=== PATIENT | female | born 1935 | race Caucasian/White ===

== ENCOUNTER → 2020-10-13 09:11 | Outpatient (BNVA) | payer MEDICARE, OTHER, SELFPAY | PROVIDERS: PCP Internal Medicine; Visit Provider Internal Medicine | DX: I25.10 Atherosclerotic heart disease of native coronary artery without angina pectoris (principal); I12.9 Hypertensive chronic kidney disease with stage 1 through stage 4 chronic kidney disease, or unspecified chronic kidney disease; N18.32 Chronic kidney disease, stage 3b; E78.5 Hyperlipidemia, unspecified | CPT/HCPCS: 93005; 99212 ==

== ENCOUNTER → 2021-03-22 10:19 | Outpatient (REF) | payer MEDICARE, OTHER, SELFPAY ==
--- NOTE | 2021-03-22 10:25 | CA_ITS ---
Transthoracic Echocardiogram Patient (Last, First, Middle): Daya Han M Gender: Female Date of : 1935 Age: 85 Procedure Date: 03/22/2021 Procedure Type: Transthoracic Echocardiogram Location: OP Height: 167.64 cm Weight: 82.56 kg BSA: 1.92 m2 Heart Rate: bpm BP: 122 / 66 mmHg Center Manager: Referring MD: Zuhair Felipe MD Symptoms: I25.10 - Atherosclerotic heart disease of [place] coronary artery without angina pectoris Study Quality: Fair ECG Rhythm: Sinus Conclusions: - The left ventricular systolic function is normal. The visually estimated ejection fraction is between 55-60%. - The basal inferior and basal inferoseptal segments are akinetic. - There is mild calcification of the aortic valve. - There is mild mitral valve regurgitation. - There is mild tricuspid valve regurgitation. - Mild pulmonary hypertension is present. Findings Left Ventricle Normal left ventricular cavity size. The left ventricular systolic function is normal. The visually estimated ejection fraction is between 55-60%. There is evidence of regional wall motion abnormalities. E/E prime ratio is >15, consistent with elevated filling pressures. Evidence suggests grade I (mild) diastolic dysfunction. There is mild septal and mild basal asymmetric hypertrophy. Wall Motion Rest Echo Findings The basal inferior and basal inferoseptal segments are akinetic. Right Ventricle Mildly increased right ventricular cavity size. There is normal right ventricular systolic function. Atria The left atrium is mildly dilated. The right atrium is normal in size. Aortic Valve There is a normal trileaflet aortic valve. There is mild calcification of the aortic valve. There is no aortic valve stenosis. There is mild aortic valve regurgitation. Mitral Valve The mitral valve appears normal. There is mild mitral valve regurgitation. There is no mitral valve stenosis. Pulmonic Valve The pulmonic valve was not well visualized. Tricuspid Valve There is mild tricuspid valve regurgitation. The right ventricular systolic pressure is 38 mmHg. Mild pulmonary hypertension is present. Great Vessels Top normal ascending aortic size at 3.9 cm. Venous The inferior vena cava is normal in size and collapses greater than 50% with inspiration. Pericardium/Pleural There is no evidence of pericardial effusion. Prior Study Comparison No significant change compared to prior study dated: 06/25/2019. Measurements 2D Linear Measurements IVSd: 1.37 0.6-0.9/0.6-1.0 cm LVIDd: 3.93 3.9-5.3/4.2-5.9 cm LVIDd Index: 2.05 2.4-3.2/2.2-3.1 cm/m2 LVIDs: 2.48 2.0-3.6 cm LVPWd: 1.25 0.7-1.1 cm Ao Root: 3.50 2.1-3.5 cm LA Diam: 3.60 2.7-3.8/3.0-4.0 cm LAIDs Index: 1.88 1.5-2.3 cm/m2 LV Mass: 229.13 67-162/88-224 g LV Mass Index: 119.34 43-95/49-115 g/m2 LVOT Diam: 2.00 3.0+(-)1.3 cm Mitral Valve MV Pk E: 0.86 MV PK A: 1.34 MV Decel Time: 238.00 E/A: 0.60 E'Lateral: 5.87 E'Medial: 5.11 E/E' Med: 16.80 E/E' Lat: 14.70 PHT: 70.00 MVA PHT: 3.14 Decel [place]: 3.61 Aortic Valve AoV Pk Johnny: 1.50 AoV Mn Johnny: 0.96 AoV VTI: 0.40 AoV Pk Grad: 9.00 Aov Mn Grad: 4.00 CARMELA Cont.VTI: 2.19 AI Pk Johnny: 4.38 AI [place]: 3.13 LVOT LVOT Pk Johnny: 1.06 LVOT Mn Johnny: 0.71 LVOT VTI: 0.28 LVOT Pk Grad: 4.00 LVOT Mn Grad: 3.00 LVOT Diam: 2.00 LVOT Area: 3.14 Diastolic Function MV Pk E: 0.86 MV Pk A: 1.34 E/A: 0.60 E'Medial: 5.11 E/E' Med: 16.80 E' Laterial: 5.87 E/E' Lat: 14.70 Right Ventricle TAPSE (mm): 30.00 Tricuspid Valve TR Pk Johnny: 2.58 TR Pk Grad: 27.00 RA Press: 3.00 RVSP: 38.00 Great Vessels Aorta Ao Root-2D: 3.50 2.0-3.7 cm Ao Asc: 3.70 2.1-3.4 cm Pulmonary Valve PV Pk Johnny: 0.80 Peak PV Grad: 3.00 Updated in Other Vendor System with Status of Final Zuhair Felipe MD electronically signed on 03/22/2021 2:09:49 PM with status of Final
== END ==
LOC: HO.CARD 10:19
PROVIDERS: Visit Provider Internal Medicine
DX: I25.10 Atherosclerotic heart disease of native coronary artery without angina pectoris (principal)
CPT/HCPCS: 93306

== ENCOUNTER → 2021-04-13 09:13 | Outpatient (BNVA) | payer MEDICARE, OTHER, SELFPAY | PROVIDERS: PCP Internal Medicine; Referring Provider Internal Medicine; Visit Provider Internal Medicine | DX: I25.10 Atherosclerotic heart disease of native coronary artery without angina pectoris (principal); I12.9 Hypertensive chronic kidney disease with stage 1 through stage 4 chronic kidney disease, or unspecified chronic kidney disease; E78.5 Hyperlipidemia, unspecified; N18.32 Chronic kidney disease, stage 3b; I21.4 Non-ST elevation (NSTEMI) myocardial infarction; Z88.8 Allergy status to other drugs, medicaments and biological substances; Z79.899 Other long term (current) drug therapy | CPT/HCPCS: 99212 ==

== ENCOUNTER → 2021-05-02 08:48 | Outpatient (REF) | payer MEDICARE, OTHER, SELFPAY ==
--- NOTE | ~2021-05-02 | NM_ITS ---
Myocardial perfusion study Indication: Atherosclerotic cardiac for myocardial ischemia Technique: The patient was brought in for a Lexiscan perfusion study on 05/02/2021. Patient performed low-level exercise and was injected 0.4 mg of Lexiscan intravenously. Within a minute of injection, 30 mCi of sestamibi was given intravenously. Images were obtained using the SPECT gamma camera interlaced with the gating device. Images were obtained in supine position. Resting perfusion study was performed on 05/03/2021. Patient was administered 30 mCi of sestamibi intravenously at rest. Images were then obtained in supine position. Gy-cm. Images obtained with and without CT attenuation. Total DLP 103 Images were processed with the software and compared side to side in short axis, horizontal long axis and vertical long axis views. Findings: The stress perfusion study showed nonattenuated images show mildly reduced uptake in the distal lateral, apex and distal anterior wall of the LV myocardium. Remainder of the LV myocardium is normally perfused. Attenuation corrected images show mildly reduced uptake in the inferior, moderately reduced uptake in the apex and mildly to moderately reduced uptake in the inferoapical wall of the LV myocardium.. The gated study shows normal LV systolic function with calculated LVEF of 70%. LV cavity is normal in size. The gated study shows normal systolic wall thickening and contraction of segments. Resting study shows nontender images show improved uptake in the distal lateral and apex of the LV myocardium. Attenuation corrected images show improved uptake in the inferoapical, apex of the LV myocardium.. Gating at rest reveals normal systolic wall motion with ejection fraction at 68%. The findings are consistent with small size mild intensity reversible defect of the apex and the inferoapical wall suggestive of ischemia.. NM/NM cardiolite stress test Impression: 1. Myocardial perfusion imaging study shows apical and inferoapical ischemia of mild intensity 2. Gated LVEF is 70%% 3. Transient ischemic dilatation not present EKG is nondiagnostic for ischemia
--- NOTE | 2021-05-02 08:51 | CA_ITS ---
Acquisition Time: 2021-05-02 09:01:55 Total Exercise Time: 00:02:00 Test Indications: Screening for CAD Medications: ASA HYDRALAZINE METOPROLOL ROSUVASTATIN Protocol: LEXISCAN Max HR: 120 BPM 87% of Pred: 137 BPM Max BP: 148/090 mmHG Max Work Load: 1.0 METS Pharmacological stress test with Lexiscan injection, while sitting and kicking her legs, without anginal symptoms, with isolated PAC, with normotensive response to injection, with EKG changes meeting criteria for ischemia, [address] V3-V6, scooping STs inferiorly. At 5 min recovery she was given Aminophylline 75mg IVP to reverse Lexiscan with gradual EKG improvement back to baseline. Nuclear images pending Test reviewed Dr Garcia Referred By: Zuhair Felipe Overread By: ANTWON MÁRQUEZ
== END ==
LOC: HO.CARD 08:48
PROVIDERS: PCP Internal Medicine; Visit Provider Internal Medicine
DX: I25.10 Atherosclerotic heart disease of native coronary artery without angina pectoris (principal)
CPT/HCPCS: 78452; 93017; A9500; J0280; J2785

== ENCOUNTER → 2021-05-24 09:14 | Outpatient (BNVA) | payer MEDICARE, OTHER, SELFPAY | PROVIDERS: PCP Internal Medicine; Referring Provider Internal Medicine; Visit Provider Internal Medicine | DX: I25.10 Atherosclerotic heart disease of native coronary artery without angina pectoris (principal); I12.9 Hypertensive chronic kidney disease with stage 1 through stage 4 chronic kidney disease, or unspecified chronic kidney disease; N18.32 Chronic kidney disease, stage 3b; E78.5 Hyperlipidemia, unspecified | CPT/HCPCS: 99212 ==

== ENCOUNTER 2021-06-01 09:09 | Outpatient (REF) | payer MEDICARE, OTHER, SELFPAY ==
[2021-06-01 10:30] LABS: Alanine Aminotransferase 17 U/L (0-31); Albumin Level 4.1 g/dL (3.5-5.0); Alkaline Phosphatase 53 U/L (39-117); Anion Gap 13 (12-20); Aspartate Amino Transferase 20 U/L (5-31); Bilirubin Direct 0.3 mg/dL (0.0-0.5); Bilirubin Total 0.6 mg/dL (0.0-1.0); Blood Urea Nitrogen 26 mg/dL (9-16); Calcium 9.4 mg/dL (8.4-10.2); Carbon Dioxide 23 mmol/L (22-29); Chloride 107 mmol/L (96-108); Cholesterol 167 mg/dL; Estimated Glomerular Filt Rate 32; Glucose Random 100 mg/dL (60-115); HDL Cholesterol 62 mg/dL; LDL Cholesterol Calculated 84 mg/dl; Potassium 3.8 mmol/L (3.3-5.1); Sodium 139 mmol/L (135-145); Total Protein 6.9 g/dL (6.5-8.0); Triglycerides 109 mg/dL
== END 2021-06-01 09:10 | disposition home or self-care (01) ==
LOC: HO.10HDL 09:09
PROVIDERS: Visit Provider Internal Medicine
DX: I25.10 Atherosclerotic heart disease of native coronary artery without angina pectoris (principal)
CPT/HCPCS: 36415; 80048; 80061; 80076

== ENCOUNTER 2021-08-04 09:18 | Outpatient (REF) | payer MEDICARE, OTHER, SELFPAY ==
[2021-08-04 11:00] LABS: Cholesterol 168 mg/dL; HDL Cholesterol 64 mg/dL; LDL Cholesterol Calculated 84 mg/dl; Triglycerides 103 mg/dL
== END 2021-08-04 09:19 | disposition home or self-care (01) ==
LOC: HO.10HDL 09:18
PROVIDERS: Visit Provider Registered Nurse
DX: E78.2 Mixed hyperlipidemia (principal)
CPT/HCPCS: 36415; 80061

== ENCOUNTER → 2021-11-28 09:18 | Outpatient (BNVA) | payer MEDICARE, OTHER, SELFPAY | PROVIDERS: PCP Internal Medicine; Visit Provider Internal Medicine | DX: I25.10 Atherosclerotic heart disease of native coronary artery without angina pectoris (principal); I12.9 Hypertensive chronic kidney disease with stage 1 through stage 4 chronic kidney disease, or unspecified chronic kidney disease; N18.32 Chronic kidney disease, stage 3b; E78.5 Hyperlipidemia, unspecified | CPT/HCPCS: 93005; 99212 ==

== ENCOUNTER → 2022-08-15 13:53 | Outpatient (BNVA) | payer MEDICARE, OTHER, SELFPAY | PROVIDERS: PCP Registered Nurse; Referring Provider Registered Nurse; Visit Provider Internal Medicine | DX: I25.10 Atherosclerotic heart disease of native coronary artery without angina pectoris (principal); I12.9 Hypertensive chronic kidney disease with stage 1 through stage 4 chronic kidney disease, or unspecified chronic kidney disease; N18.32 Chronic kidney disease, stage 3b; E78.5 Hyperlipidemia, unspecified; Z79.899 Other long term (current) drug therapy | CPT/HCPCS: 99212 ==

== ENCOUNTER 2023-08-30 14:08 | Outpatient (AMB) | payer MEDICARE, OTHER, SELFPAY ==
[2023-08-30 14:20] VITALS: BP 174/90; PULSE 65; BMI 29.9
--- NOTE | 2023-08-30 14:20 | MHC.OFFVIS ---
Intake Vital Signs 08/30/23 14:20 Height 5 ft 5 in Weight 179 lb 14.355 oz BMI 29.9 BP 174/90 H Blood Pressure Location Lt brachial Position Sitting Pulse 65 Intake Visit Reasons: 1 year follow up Intake Note: 1 year follow up w/ EKG Accompanied by: niece Allergies amlodipine Adverse Reaction (Unknown, Verified 08/30/23 14:21) swelling feet lisinopril Adverse Reaction (Unknown, Verified 08/30/23 14:21) swelling feet Medication List - Last Reconciled 08/30/23 by Zuhair Felipe MD aspirin 81 mg PO DAILY hydralazine 50 mg PO TID metoprolol tartrate 100 mg PO BID rosuvastatin 40 mg PO DAILY HPI HPI Comments History of Present Illness Details Daya returns for follow-up regarding hypertension and coronary disease. She states she is generally doing well. No complaints like angina or in fact anything cardiac related. To recall, she had an NSTEMI in 2016 in the setting of hypertensive emergency but since that time she has been quite stable. Her blood pressure is generally not well controlled and she has numerous listed side effects to different medications at different times. Currently she is only on metoprolol and hydralazine. [facility] Medical History Atherosclerotic cardiovascular disease Chronic kidney disease, unspecified Essential hypertension HLD (hyperlipidemia) Other and unspecified hyperlipidemia Surgical History No pertinent past surgical history Family History Father CVD (cardiovascular disease) Mother CVD (cardiovascular disease) Heart attack Social History Alcohol intake: never Patient Tobacco Use Status: Never used Tobacco Review of Systems Const Denies weakness ENT Denies dizziness Card Denies chest pain, Denies chest pain with activity, Denies syncope, Denies rapid heart rate, Denies pedal edema, Denies edema, Denies leg edema, Denies lightheadedness, Denies palpitations, Denies dyspnea, Denies dyspnea on exertion and Denies orthopnea Resp Denies cough, Denies dyspnea and Denies dyspnea on exertion GI Denies hematochezia and Denies change in stool character Musc Denies abnormal gait, Denies muscle cramps, Denies muscle weakness, Denies numbness, Denies radiating pain into limb and Denies tingling Neuro Denies abnormal gait, Denies dizziness, Denies syncope, Denies numbness, Denies tingling and Denies weakness Endo Denies palpitations Physical Exam Vital Signs: Last Vital Signs Pulse 65 08/30/23 14:20 BP 174/90 H 08/30/23 14:20 BMI result Body Mass Index 29.9 Const General: comfortable and no acute distress Orientation/consciousness: patient oriented x3 HEENT Other: Unremarkable Head: Yes normal to inspection Neck Neck: Yes normal visual inspection Chest Chest palpation & inspection: normal inspection of the chest Resp Auscultation: clear to auscultation bilaterally Cardio Palpation: normal PMI Heart sounds: S1 normal heart sound present, S2 normal heart sound present, no gallops, no murmurs and no rubs GI Palpation (GI): Soft to palpation Back/Spine/Pelvis Other: unremarkable Skin General skin exam: no rashes or lesions noted Neuro General: patient oriented x3 Extrem General: Yes normal to inspection Psych Mental Status: mental status grossly normal Office Procedures EKG Details: EKG with sinus rhythm at 65/Min; no significant ST-T changes and otherwise unremark[place] [address]-[id number], Complete Assessment & Plan Assessment & Plan (1) Atherosclerotic cardiovascular disease: Code(s): I25.10 - Atherosclerotic heart disease of [place] coronary artery without angina pectoris Plan: In prior stress perfusion imaging, there was apical and inferoapical mild ischemia. Echocardiogram also shows inferior/inferoseptal wall motion abnormality. Hence suspect underlying CAD but clinically she is got absolutely no angina. Also has baseline CKD. Hence empiric medications for stable CAD including aspirin, beta-blockers and statins. (2) Essential hypertension: Code(s): I10 - Essential (primary) hypertension Plan: Difficult to control for various reasons. Mainly some kind of side effect or intolerance or reluctant to take meds from patient. In the past, she is taken amlodipine but had some leg swelling and that was stopped. She has CKD and hence unable to use BRENDA inhibitors or ARB. Recommended nephrology evaluation but she would not rather do that. She is taken much higher dose of hydralazine in the past as much as 100 mg t.i.d. but again had some side effects and hence it was cut back. Recommend we still re-attempt higher dose, possibly 70 mg t.i.d. and then we can decide. Next step might be to add something like nifedipine. Discussed with niece who came with her. They will report to us home blood pressures over the next few weeks. (3) Other and unspecified hyperlipidemia: Code(s): E78.5 - Hyperlipidemia, unspecified Plan: On Rosuvastatin. Last available LDL is 84mg/dL. Prior to this, was on Atorvastatin but not tolerating it and several dose adjustments have been made in the past. (4) Chronic kidney disease, unspecified: Code(s): N18.9 - Chronic kidney disease, unspecified Qualifiers: Chronic kidney disease stage: stage 3 (moderate) Chronic kidney disease stage 3 subtype: stage 3b (GFR 30-44) Qualified Code(s): N18.32 - Chronic kidney disease, stage 3b Plan: Last creatinine 1.5. Could be hypertensive nephropathy. Has been mostly stable. Not keen on Nephrology appointments. Medications: New hydralazine 75 mg (3 x 25 mg) PO TID 810 tabs 3RF 90 days Discontinued hydralazine Discontinued Reason: Doctor's Order 50 mg PO TID 270 tabs 3RF Coding Level of Care Code Est Pt Level 4 (80105) Diagnoses Atherosclerotic cardiovascular disease I25.10 Essential hypertension I10 Other and unspecified hyperlipidemia E78.5 Stage 3b chronic kidney disease N18.32 Chronic kidney disease stage: stage 3 (moderate) Chronic kidney disease stage 3 subtype: stage 3b (GFR 30-44) CPT Codes EKG - CPT: 16550-[id number], Complete ([id number])
== END 2023-08-30 14:42 | disposition home or self-care (01) ==
PROVIDERS: PCP Registered Nurse; Visit Provider Internal Medicine
DX: I25.10 Atherosclerotic heart disease of native coronary artery without angina pectoris (principal); I10 Essential (primary) hypertension; E78.5 Hyperlipidemia, unspecified; N18.32 Chronic kidney disease, stage 3b
CPT/HCPCS: 93010; 99214

== ENCOUNTER → 2023-08-30 14:08 | Outpatient (BNVA) | payer MEDICARE, OTHER, SELFPAY | PROVIDERS: PCP Registered Nurse; Visit Provider Internal Medicine | DX: I12.9 Hypertensive chronic kidney disease with stage 1 through stage 4 chronic kidney disease, or unspecified chronic kidney disease (principal); N18.32 Chronic kidney disease, stage 3b; I25.10 Atherosclerotic heart disease of native coronary artery without angina pectoris; E78.5 Hyperlipidemia, unspecified | CPT/HCPCS: 93005; 99212 ==

== ENCOUNTER 2024-03-24 11:33 | Outpatient (AMB) | payer MEDICARE, OTHER, SELFPAY ==
[2024-03-24 11:37] VITALS: BP 140/68; PULSE 71; BMI 29.0
--- NOTE | 2024-03-24 11:37 | MHC.OFFVIS ---
Vital Signs 03/24/24 11:37 Height 5 ft 5 in Weight 174 lb 2.643 oz BMI 29.0 BP 140/68 H Blood Pressure Location Lt brachial Position Sitting Pulse 71 Pulse Source Pulse Oximeter Intake Visit Reasons: 6m follow up(rs) Allergies amlodipine Adverse Reaction (Unknown, Verified 08/30/23 14:21) swelling feet lisinopril Adverse Reaction (Unknown, Verified 08/30/23 14:21) swelling feet Medication List - Last Reconciled 03/24/24 by Zuhair Felipe MD aspirin 81 mg PO DAILY hydralazine 50 mg PO TID metoprolol tartrate 100 mg PO BID rosuvastatin 40 mg PO DAILY HPI Comments Details: Daya returns for follow-up regarding hypertension and coronary disease. To recall, she had an NSTEMI in 2016 in the setting of hypertensive emergency but since that time she has been quite stable. Overall, she states she is doing fine. No cardiac symptoms. Home blood pressures seem to be much lower as there only in the 110s and 120s according to her. [facility] Medical History Atherosclerotic cardiovascular disease Chronic kidney disease, unspecified Essential hypertension HLD (hyperlipidemia) Other and unspecified hyperlipidemia Surgical History No pertinent past surgical history Family History Father CVD (cardiovascular disease) Mother CVD (cardiovascular disease) Heart attack Social History Alcohol intake: never Patient Tobacco Use Status: Never used Tobacco Review of Systems Const Denies weakness ENT Denies dizziness Card Denies chest pain, Denies chest pain with activity, Denies syncope, Denies rapid heart rate, Denies pedal edema, Denies edema, Denies leg edema, Denies lightheadedness, Denies palpitations, Denies dyspnea, Denies dyspnea on exertion and Denies orthopnea Resp Denies cough, Denies dyspnea and Denies dyspnea on exertion GI Denies hematochezia and Denies change in stool character Musc Denies abnormal gait, Denies muscle cramps, Denies muscle weakness, Denies numbness, Denies radiating pain into limb and Denies tingling Neuro Denies abnormal gait, Denies dizziness, Denies syncope, Denies numbness, Denies tingling and Denies weakness Endo Denies palpitations Physical Exam Vital Signs: Last Vital Signs Pulse 71 03/24/24 11:37 BP 140/68 H 03/24/24 11:37 BMI result Body Mass Index 29.0 Const General: comfortable and no acute distress Orientation/consciousness: patient oriented x3 HEENT Other: Unremarkable Head: Yes normal to inspection Neck Neck: Yes normal visual inspection Chest Chest palpation & inspection: normal inspection of the chest Resp Auscultation: clear to auscultation bilaterally Cardio Palpation: normal PMI Heart sounds: S1 normal heart sound present, S2 normal heart sound present, no gallops, Murmur heart sound present systolic II/ and at the right sternal border and no rubs GI Palpation (GI): Soft to palpation Back/Spine/Pelvis Other: unremarkable Skin General skin exam: no rashes or lesions noted Neuro General: patient oriented x3 Extrem General: Yes normal to inspection Psych Mental Status: mental status grossly normal Assessment & Plan Assessment & Plan (1) Atherosclerotic cardiovascular disease: Code(s): I25.10 - Atherosclerotic heart disease of [place] coronary artery without angina pectoris Category: Medical Plan: In prior stress perfusion imaging, there was apical and inferoapical mild ischemia. Echocardiogram also shows inferior/inferoseptal wall motion abnormality. Hence suspect underlying CAD but clinically she is got absolutely no angina. Also has baseline CKD. She remains on aspirin, beta-blockers and statins. (2) Essential hypertension: Code(s): I10 - Essential (primary) hypertension Category: Medical Plan: These days, reasonably well controlled. Home blood pressures are much lower. Currently on combination of metoprolol/hydralazine. Has been on amlodipine in the past but developed leg swelling. Due to CKD, not on any BRENDA inhibitors or ARB. In the past, recommended nephrology evaluation but not interested. No further changes today. (3) Other and unspecified hyperlipidemia: Code(s): E78.5 - Hyperlipidemia, unspecified Category: Medical Plan: On Rosuvastatin. Last available LDL is 84mg/dL. Prior to this, was on Atorvastatin but not tolerating it and several dose adjustments have been made in the past. Plan Discussed with family who came for appointment. We will contact PCP for any recent labs. Orders: Orders CA echo transthoracic complete 1 Year I25.10 - Atherosclerotic heart disease of [place] coronary artery without angina pectoris Coding Level of Care Code Est Pt Level 4 (68554) Diagnoses Atherosclerotic cardiovascular disease I25.10 Essential hypertension I10 Other and unspecified hyperlipidemia E78.5
== END 2024-03-24 11:57 | disposition home or self-care (01) ==
PROVIDERS: PCP Registered Nurse; Visit Provider Internal Medicine
DX: I25.10 Atherosclerotic heart disease of native coronary artery without angina pectoris (principal); I10 Essential (primary) hypertension; E78.5 Hyperlipidemia, unspecified
CPT/HCPCS: 99214

== ENCOUNTER → 2024-03-24 11:33 | Outpatient (BNVA) | payer MEDICARE, OTHER, SELFPAY | PROVIDERS: PCP Registered Nurse; Visit Provider Internal Medicine | DX: I10 Essential (primary) hypertension (principal); I25.10 Atherosclerotic heart disease of native coronary artery without angina pectoris; I25.2 Old myocardial infarction; E78.5 Hyperlipidemia, unspecified | CPT/HCPCS: 99212 ==

== ENCOUNTER 2025-05-25 10:32 | Outpatient (AMB) | payer MEDICARE, OTHER, SELFPAY ==
--- NOTE | 2025-05-25 10:36 | A.OFFVIS_ITS ---
Vital Signs 05/25/25 10:37 Height 5 ft 4 in Weight 173 lb BMI 29.7 BP 122/62 Blood Pressure Location Lt brachial Position Sitting Pulse 70 Pulse Source Monitor Intake Visit Reasons: 1 yr f/up Allergies amlodipine Adverse Reaction (Unknown, Verified 08/30/23 14:21) swelling feet lisinopril Adverse Reaction (Unknown, Verified 08/30/23 14:21) swelling feet Medication List - Last Reconciled 05/25/25 by Zuhair Felipe MD aspirin 81 mg PO DAILY hydralazine 75 mg (3 x 25 mg) PO TID metoprolol tartrate 100 mg PO BID rosuvastatin 40 mg PO DAILY HPI Comments Details: Daya returns for follow-up regarding hypertension and coronary disease. To recall, she had an NSTEMI in 2016 in the setting of hypertensive emergency but since that time she has been quite stable. According to her, she is doing quite well. No cardiac symptoms. Blood pressure is also been quite stable these days and she states home pressures are generally in the 120s or so. She has not noticed any in markedly high readings. [facility] Medical History Atherosclerotic cardiovascular disease Chronic kidney disease, unspecified Essential hypertension HLD (hyperlipidemia) Other and unspecified hyperlipidemia Surgical History No pertinent past surgical history Family History Father CVD (cardiovascular disease) Mother CVD (cardiovascular disease) Heart attack Social History Alcohol intake: never Patient Tobacco Use Status: Never used Tobacco Review of Systems Const Denies weakness ENT Denies dizziness Card Denies chest pain, Denies chest pain with activity, Denies syncope, Denies rapid heart rate, Denies pedal edema, Denies edema, Denies leg edema, Denies lightheadedness, Denies palpitations, Denies dyspnea, Denies dyspnea on exertion and Denies orthopnea Resp Denies cough, Denies dyspnea and Denies dyspnea on exertion GI Denies hematochezia and Denies change in stool character Musc Denies abnormal gait, Denies muscle cramps, Denies muscle weakness, Denies numbness, Denies radiating pain into limb and Denies tingling Neuro Denies abnormal gait, Denies dizziness, Denies syncope, Denies numbness, Denies tingling and Denies weakness Endo Denies palpitations Physical Exam Vital Signs: Last Vital Signs Pulse 70 05/25/25 10:37 BP 122/62 05/25/25 10:37 BMI result Body Mass Index 29.7 Const General: comfortable and no acute distress Orientation/consciousness: patient oriented x3 HEENT Other: Unremarkable Head: Yes normal to inspection Neck Neck: Yes normal visual inspection Chest Chest palpation & inspection: normal inspection of the chest Resp Auscultation: clear to auscultation bilaterally Cardio Palpation: normal PMI Heart sounds: S1 normal heart sound present, S2 normal heart sound present, no gallops, no murmurs and no rubs GI Palpation (GI): Soft to palpation Back/Spine/Pelvis Other: unremarkable Skin General skin exam: no rashes or lesions noted Neuro General: patient oriented x3 Extrem General: Yes normal to inspection Psych Mental Status: mental status grossly normal Office Procedures EKG Details: EKG with underlying sinus rhythm at 70/Min; no ischemic changes; [place] [address]-[id number], Complete Assessment & Plan Assessment & Plan (1) Atherosclerotic cardiovascular disease: Code(s): I25.10 - Atherosclerotic heart disease of [place] coronary artery without angina pectoris Category: Medical Plan: In prior stress perfusion imaging, there was apical and inferoapical mild ischemia. Echocardiogram with inferior/inferoseptal wall motion abnormality. Likely has underlying coronary disease but without any symptoms and at her age, we will just follow clinically. Conservative management with medications including aspirin, beta-blockers and statins. (2) Essential hypertension: Code(s): I10 - Essential (primary) hypertension Category: Medical Plan: Stable on current regimen of metoprolol and hydralazine. She has had amlodipine in the past but developed leg swelling. Due to CKD history, not on any BRENDA inhibitors or ARB. In the past, recommended nephrology evaluation but not interested. No further changes today. We will need to get the last labs from PCP. (3) Other and unspecified hyperlipidemia: Code(s): E78.5 - Hyperlipidemia, unspecified Category: Medical Plan: On Rosuvastatin. Last available LDL is 84mg/dL. Prior to this, was on Atorvastatin but not tolerating it and several dose adjustments have been made in the past. Plan per patient, saw for PCP; but may see someone else in future. Need to update our records. Discussion Notes I discussed with the patient that her hypertension is well-controlled with current home monitoring practices, and no changes to her medication regimen are needed at this time. Patient was informed and verbally consented to the use of an ambient scribe for clinic note documentation during this visit. Patient Instructions: - Continue monitoring blood pressure at home and report any significant changes. - Schedule follow-up appointment in one year or sooner if symptoms change. Coding Level of Care Code Est Pt Level 4 (59907) Complex EM visit Add On G2211 Diagnoses Atherosclerotic cardiovascular disease I25.10 Essential hypertension I10 Other and unspecified hyperlipidemia E78.5 CPT Codes EKG - CPT: 12382-[id number], Complete ([id number])
[2025-05-25 10:37] VITALS: BP 122/62; PULSE 70; BMI 29.7
== END 2025-05-25 11:08 | disposition home or self-care (01) ==
LOC: HO.HCS 10:33
PROVIDERS: PCP Registered Nurse; Visit Provider Internal Medicine
DX: I25.10 Atherosclerotic heart disease of native coronary artery without angina pectoris (principal); I10 Essential (primary) hypertension; E78.5 Hyperlipidemia, unspecified
CPT/HCPCS: 93010; 99214; G2211

== ENCOUNTER → 2025-05-25 10:32 | Outpatient (BNVA) | payer MEDICARE, OTHER, SELFPAY | PROVIDERS: PCP Registered Nurse; Visit Provider Internal Medicine | DX: I25.10 Atherosclerotic heart disease of native coronary artery without angina pectoris (principal); I10 Essential (primary) hypertension; E78.5 Hyperlipidemia, unspecified | CPT/HCPCS: 93005; 99212 ==